=== PATIENT | female | born 1965 | race African-American/Black ===

== ENCOUNTER 2021-06-14 10:34 | Outpatient (CLI) | payer OTHER | END 2021-06-14 10:35 | disposition home or self-care (01) | LOC: RAD 10:34 | PROVIDERS: ATTEND Psychiatry & Neurology Neurology | DX: J44.9 Chronic obstructive pulmonary disease, unspecified (principal); I10 Essential (primary) hypertension; R00.0 Tachycardia, unspecified; K21.9 Gastro-esophageal reflux disease without esophagitis | CPT/HCPCS: 71046 ==